=== PATIENT | male | born 1945 | race Caucasian/White ===

== ENCOUNTER 2020-08-29 14:18 | Inpatient (IN) ==
[2020-08-29 14:46] LABS: Hematocrit 18.8 VOL% (42.0-52.0); Hemoglobin 6.6 GM/DL (14.0-18.0); Immature Granulocytes % 1.9 %; Immature Granulocytes Absolute 0.04 #; Lymphocytes # 1.2 10*3/uL (1.4-4.0); Lymphocytes % 58.3 % (21.2-54.2); Mean Corpuscular HGB Conc 35.1 GM/DL (32-36); Mean Corpuscular Volume 94.9 FL (87-102); Mean Platelet Volume 10.7 FL (9.6-12.0); Monocytes % 19.9 % (1.7-12.7); NRBC # 0.02 10*3/uL; Neutrophils % 19.9 % (38.7-73.9); Platelet Count 113 T/CUMM (130-400); Red Blood Count 1.98 MC/CUMM (3.8-5.5); Red Cell Distribution Width 16.8 % (9.3-17.3); White Blood Count 2.1 T/CUMM (4-12)
[2020-08-29 15:03] LABS: Albumin 2.9 G/DL (3.4-5.0); Bilirubin,Total 0.8 MG/DL (0.2-1.0); Osmolality,Calculated 280.7 MOS/KG (273-304); Total Protein 5.6 G/DL (6.4-8.3)
[2020-08-29 15:24] LABS: INR 1.3; PT Patient Result 13.5 SECS (9.8-11.9); Partial Thromboplastin Time 38.5 SECS (23.9-33.8)
[2020-08-29] MEDS ORDERED: DEXTROSE 50% 25 GM/50 ML VIAL IV PRN (15:39)
[2020-08-29] MEDS ORDERED: GLUCAGON 1 MG VIAL IM PRN (15:39)
[2020-08-29 15:46] LABS: Atypical Lymphocytes Few; Band Neutrophils 1 % (0-10); Lymphocytes 64 % (20-55); Platelet Estimate Adequate; Segmented Neutrophils 24 % (50-85); Total Cells Counted 100
[2020-08-29 15:47] LABS: Burr Cells Few; Poikilocytosis Few
[2020-08-29 15:50] LABS: % Iron Saturation 102.8 % (18-50); Ferritin 3334.5 ng/ml (26-388)
[2020-08-29] MEDS ORDERED: diphenhydrAMINE 50 MG/1 ML VIAL IV PRN (15:53)
[2020-08-29] MEDS ORDERED: FUROSEMIDE 20 MG/2 ML VIAL IV PRN (15:53)
[2020-08-29] MEDS ORDERED: SODIUM CHLORIDE 0.9% 1,000 ML IV PRN (15:53)
[2020-08-29] MEDS ORDERED: ACETAMINOPHEN 325 MG TABLET PO PRN (15:53)
[2020-08-29 16:23] LABS: Thyroid Stimulating Hormone 3.75 uIU/ml (0.358-3.74)
[2020-08-29 16:57] LABS: Immature Granulocytes % 2.3 %; Immature Granulocytes Absolute 0.04 #; Lymphocytes % 56.1 % (21.2-54.2); Mean Corpuscular HGB Conc 35.1 GM/DL (32-36); Mean Corpuscular Volume 95.5 FL (87-102); Mean Platelet Volume 10.6 FL (9.6-12.0); Monocytes % 18.1 % (1.7-12.7); Neutrophils % 23.5 % (38.7-73.9); Platelet Count 99 T/CUMM (130-400); Red Blood Count 1.79 MC/CUMM (3.8-5.5); Red Cell Distribution Width 16.9 % (9.3-17.3); White Blood Count 1.7 T/CUMM (4-12)
[2020-08-29 17:04] LABS: Hematocrit 17.1 VOL% (42.0-52.0)
[2020-08-29 17:18] LABS: Folate > 24.0 NG/ML (5.4-24.0); Vitamin B12 591 PG/ML (211-911)
[2020-08-29 17:58] LABS: HIV Antigen/Antibody Result Nonreactive (Nonreactive)
[2020-08-29 18:03] LABS: Anisocytosis 1+; Band Neutrophils 3 % (0-10); Elliptocytes Few; Lymphocytes 46 % (20-55); Macrocytosis 1+; Metamyelocytes 2 %; Microcytosis 1+; Nucleated Red Blood Cells 2 (0-5); Platelet Estimate Decreased; Poikilocytosis 1+; Schistocytes Slight; Segmented Neutrophils 34 % (50-85); Total Cells Counted 100
[2020-08-29 18:04] LABS: Tear Drop Cells Slight
[2020-08-29 18:10] LABS: Hepatitis B Core IgM Quant 0.07 Index; Hepatitis B Surface Ag Quant < 0.10 Index; Hepatitis B Surface Ag Result Negative (Negative); Hepatitis C Virus Ab Quant 0.17 Index; Hepatitis C Virus Ab Result Negative (Negative)
[2020-08-29] MEDS ORDERED: INFLUENZA VIRUS VACCINE 0.5 ML SYRINGE IM ONE (19:26)
[2020-08-29] MEDS: FUROSEMIDE 40 MG/4 ML VIAL IV SCH (20:23)
[2020-08-30 03:16] LABS: Hematocrit 19.7 VOL% (42.0-52.0); Hemoglobin 6.9 GM/DL (14.0-18.0)
[2020-08-30 06:04] LABS: Hematocrit 19.2 VOL% (42.0-52.0); Hemoglobin 6.8 GM/DL (14.0-18.0); Immature Granulocytes Absolute 0.03 #; Lymphocytes # 0.8 10*3/uL (1.4-4.0); Lymphocytes % 52.4 % (21.2-54.2); Mean Corpuscular HGB Conc 35.4 GM/DL (32-36); Mean Corpuscular Volume 93.2 FL (87-102); Mean Platelet Volume 11.2 FL (9.6-12.0); Monocytes % 27.9 % (1.7-12.7); Neutrophils % 17.7 % (38.7-73.9); Red Blood Count 2.06 MC/CUMM (3.8-5.5); Red Cell Distribution Width 16.6 % (9.3-17.3); White Blood Count 1.5 T/CUMM (4-12)
[2020-08-30 06:07] LABS: Platelet Count 89 T/CUMM (130-400)
[2020-08-30] MEDS ORDERED: SODIUM CHLORIDE 0.9% 1,000 ML IV PRN (06:23)
[2020-08-30 06:25] LABS: Albumin 2.7 G/DL (3.4-5.0); Bilirubin,Total 0.7 MG/DL (0.2-1.0); Calcium 8.4 MG/DL (8.5-10.1); Osmolality,Calculated 281.5 MOS/KG (273-304)
[2020-08-30 06:33] LABS: Band Neutrophils 1 % (0-10); Lymphocytes 55 % (20-55); Segmented Neutrophils 28 % (50-85); Total Cells Counted 100
[2020-08-30 06:34] LABS: Hypochromasia 1+
[2020-08-30 06:35] LABS: Anisocytosis 1+; Microcytosis 1+; Tear Drop Cells Slight
[2020-08-30 06:37] LABS: Atypical Lymphocytes Few; Elliptocytes Few; Platelet Estimate Decreased; Poikilocytosis 1+
[2020-08-30] MEDS: FUROSEMIDE 40 MG/4 ML VIAL IV SCH ×2 (09:38→21:18)
[2020-08-30 18:18] LABS: Hematocrit 23.6 VOL% (42.0-52.0)
[2020-08-30 18:19] LABS: Hemoglobin 8.2 GM/DL (14.0-18.0)
[2020-08-31 06:16] LABS: Hematocrit 23.7 VOL% (42.0-52.0); Hemoglobin 8.3 GM/DL (14.0-18.0); Immature Granulocytes % 1.8 %; Immature Granulocytes Absolute 0.03 #; Lymphocytes # 0.9 10*3/uL (1.4-4.0); Lymphocytes % 56.4 % (21.2-54.2); Mean Corpuscular Volume 91.2 FL (87-102); Mean Platelet Volume 10.8 FL (9.6-12.0); Monocytes % 28.2 % (1.7-12.7); Neutrophils % 13.6 % (38.7-73.9); Red Cell Distribution Width 16.6 % (9.3-17.3); White Blood Count 1.6 T/CUMM (4-12)
[2020-08-31 06:17] LABS: Platelet Count 89 T/CUMM (130-400)
[2020-08-31 06:32] LABS: Albumin 2.5 G/DL (3.4-5.0); Bilirubin,Total 1.7 MG/DL (0.2-1.0); Calcium 8.2 MG/DL (8.5-10.1); Osmolality,Calculated 285.3 MOS/KG (273-304); Total Protein 4.9 G/DL (6.4-8.3)
[2020-08-31 06:49] LABS: Hypochromasia 1+; Lymphocytes 61 % (20-55); Microcytosis 1+; Ovalocytes Slight; Platelet Estimate Decreased; Segmented Neutrophils 19 % (50-85); Total Cells Counted 100
[2020-08-31 06:50] LABS: Atypical Lymphocytes Few
[2020-08-31] MEDS ORDERED: HEPARIN 5,000 UNIT/1 ML VIAL ONE (09:54)
[2020-08-31] MEDS ORDERED: HEPARIN 1,000 UNIT/1 ML VIAL ONE (10:31)
[2020-08-31] MEDS: FUROSEMIDE 40 MG/4 ML VIAL IV SCH ×2 (11:13→21:46)
[2020-08-31] MEDS: GABAPENTIN 300 MG CAPSULE PO SCH ×2 (18:08→21:45)
[2020-08-31] MEDS: METHOCARBAMOL 500 MG TABLET PO PRN (21:46)
[2020-09-01 05:42] LABS: Hematocrit 24.2 VOL% (42.0-52.0); Hemoglobin 8.3 GM/DL (14.0-18.0); Immature Granulocytes % 3.9 %; Immature Granulocytes Absolute 0.06 #; Lymphocytes # 0.8 10*3/uL (1.4-4.0); Lymphocytes % 54.5 % (21.2-54.2); Mean Corpuscular HGB Conc 34.3 GM/DL (32-36); Mean Corpuscular Volume 91.3 FL (87-102); Mean Platelet Volume 11.1 FL (9.6-12.0); Monocytes % 30.5 % (1.7-12.7); Neutrophils % 11.1 % (38.7-73.9); Platelet Count 96 T/CUMM (130-400); Red Blood Count 2.65 MC/CUMM (3.8-5.5); Red Cell Distribution Width 16.3 % (9.3-17.3); White Blood Count 1.5 T/CUMM (4-12)
[2020-09-01 05:57] LABS: INR 1.1; PT Patient Result 11.9 SECS (9.8-11.9); Partial Thromboplastin Time 34.5 SECS (23.9-33.8)
[2020-09-01 06:05] LABS: Calcium 8.1 MG/DL (8.5-10.1); Osmolality,Calculated 281.5 MOS/KG (273-304)
[2020-09-01 06:10] LABS: Albumin 2.7 G/DL (3.4-5.0); Bilirubin,Direct 0.23 MG/DL (0.0-0.20); Bilirubin,Indirect 1.4 MG/DL (0.0-1.0); Bilirubin,Total 1.6 MG/DL (0.2-1.0)
[2020-09-01 06:11] LABS: Atypical Lymphocytes Few; Hypochromasia 1+; Lymphocytes 64 % (20-55); Microcytosis 1+; Ovalocytes Slight; Platelet Estimate Decreased; Segmented Neutrophils 12 % (50-85); Total Cells Counted 100
[2020-09-01] MEDS ORDERED: POTASSIUM CHLORIDE 20 MEQ TABLET PO ONE (09:24)
[2020-09-01] MEDS: GABAPENTIN 300 MG CAPSULE PO SCH ×3 (11:30→21:24)
[2020-09-01] MEDS: FUROSEMIDE 40 MG/4 ML VIAL IV SCH ×2 (11:32→21:24)
[2020-09-02 06:02] LABS: Calcium 8.2 MG/DL (8.5-10.1); Osmolality,Calculated 279.7 MOS/KG (273-304)
[2020-09-02 06:09] LABS: Albumin 2.6 G/DL (3.4-5.0); Bilirubin,Direct 0.23 MG/DL (0.0-0.20); Bilirubin,Indirect 1.3 MG/DL (0.0-1.0); Bilirubin,Total 1.5 MG/DL (0.2-1.0); Total Protein 5.1 G/DL (6.4-8.3)
[2020-09-02 06:10] LABS: Hematocrit 24.6 VOL% (42.0-52.0); Hemoglobin 8.4 GM/DL (14.0-18.0); Immature Granulocytes % 2.7 %; Immature Granulocytes Absolute 0.04 #; Lymphocytes # 0.9 10*3/uL (1.4-4.0); Lymphocytes % 57.7 % (21.2-54.2); Mean Corpuscular HGB Conc 34.1 GM/DL (32-36); Mean Corpuscular Volume 91.8 FL (87-102); Mean Platelet Volume 11.4 FL (9.6-12.0); Monocytes % 27.5 % (1.7-12.7); NRBC # 0.02 10*3/uL; Neutrophils % 12.1 % (38.7-73.9); Platelet Count 87 T/CUMM (130-400); Red Blood Count 2.68 MC/CUMM (3.8-5.5); White Blood Count 1.5 T/CUMM (4-12)
[2020-09-02 07:56] LABS: Lymphocytes 57 % (20-55); Segmented Neutrophils 17 % (50-85); Total Cells Counted 100
[2020-09-02 07:57] LABS: Ovalocytes Few; Platelet Estimate Adequate; Polychromasia Slight; Tear Drop Cells Slight
[2020-09-02] MEDS: FUROSEMIDE 40 MG/4 ML VIAL IV SCH (08:15)
[2020-09-02] MEDS: GABAPENTIN 300 MG CAPSULE PO SCH ×3 (08:15→20:34)
[2020-09-02] MEDS ORDERED: MAGNESIUM HYDROXIDE SUSP 30 ML UDCUP PO ONE (11:20)
[2020-09-02] MEDS: METOPROLOL SUCCINATE XL 25 MG TABLET PO SCH (12:13)
[2020-09-02] MEDS: DOCUSATE SODIUM 100 MG CAPSULE PO SCH ×2 (12:14→20:34)
[2020-09-02] MEDS: FUROSEMIDE 40 MG TABLET PO SCH (16:22)
[2020-09-03 07:17] LABS: Albumin 2.6 G/DL (3.4-5.0); Bilirubin,Direct 0.25 MG/DL (0.0-0.20); Bilirubin,Indirect 1.5 MG/DL (0.0-1.0); Bilirubin,Total 1.7 MG/DL (0.2-1.0)
[2020-09-03] MEDS: GABAPENTIN 300 MG CAPSULE PO SCH ×3 (09:55→21:05)
[2020-09-03] MEDS: FUROSEMIDE 40 MG TABLET PO SCH ×2 (09:55→17:04)
[2020-09-03] MEDS: POLYETHYLENE GLYCOL POWDER 17 GM PACK PO SCH (09:55)
[2020-09-03] MEDS: METOPROLOL SUCCINATE XL 25 MG TABLET PO SCH (09:55)
[2020-09-03] MEDS: DOCUSATE SODIUM 100 MG CAPSULE PO SCH ×2 (09:55→21:05)
[2020-09-03] MEDS: METHOCARBAMOL 500 MG TABLET PO PRN (21:05)
[2020-09-04 06:01] LABS: Hematocrit 23.3 VOL% (42.0-52.0); Hemoglobin 8.1 GM/DL (14.0-18.0); Immature Granulocytes % 3.7 %; Immature Granulocytes Absolute 0.06 #; Lymphocytes # 0.7 10*3/uL (1.4-4.0); Lymphocytes % 44.1 % (21.2-54.2); Mean Corpuscular HGB Conc 34.8 GM/DL (32-36); Mean Corpuscular Volume 91.7 FL (87-102); Mean Platelet Volume 10.5 FL (9.6-12.0); Monocytes % 29.8 % (1.7-12.7); Neutrophils % 22.4 % (38.7-73.9); Platelet Count 98 T/CUMM (130-400); Red Blood Count 2.54 MC/CUMM (3.8-5.5); Red Cell Distribution Width 15.9 % (9.3-17.3); White Blood Count 1.6 T/CUMM (4-12)
[2020-09-04 06:28] LABS: Albumin 2.5 G/DL (3.4-5.0); Bilirubin,Direct 0.28 MG/DL (0.0-0.20); Bilirubin,Indirect 0.7 MG/DL (0.0-1.0); Total Protein 4.9 G/DL (6.4-8.3)
[2020-09-04 06:32] LABS: Calcium 8.1 MG/DL (8.5-10.1)
[2020-09-04 06:33] LABS: Lymphocytes 37 % (20-55); Platelet Estimate Decreased; Segmented Neutrophils 31 % (50-85); Total Cells Counted 100
[2020-09-04 06:34] LABS: Atypical Lymphocytes Few; Hypochromasia 1+; Microcytosis 1+; Ovalocytes Slight
[2020-09-04] MEDS: METHOCARBAMOL 500 MG TABLET PO PRN ×2 (08:25→21:12)
[2020-09-04] MEDS: POLYETHYLENE GLYCOL POWDER 17 GM PACK PO SCH (08:25)
[2020-09-04] MEDS: GABAPENTIN 300 MG CAPSULE PO SCH ×3 (08:26→21:12)
[2020-09-04] MEDS: FUROSEMIDE 40 MG TABLET PO SCH (08:26)
[2020-09-04] MEDS: DOCUSATE SODIUM 100 MG CAPSULE PO SCH ×2 (08:26→21:12)
[2020-09-04] MEDS: METOPROLOL SUCCINATE XL 25 MG TABLET PO SCH (10:11)
[2020-09-04] MEDS ORDERED: SODIUM CHLORIDE 0.9% 1,000 ML IV PRN (15:56)
[2020-09-05 06:46] LABS: Hematocrit 25.8 VOL% (42.0-52.0); Hemoglobin 8.9 GM/DL (14.0-18.0); Immature Granulocytes % 1.9 %; Immature Granulocytes Absolute 0.03 #; Lymphocytes # 0.6 10*3/uL (1.4-4.0); Lymphocytes % 37.4 % (21.2-54.2); Mean Corpuscular HGB Conc 34.5 GM/DL (32-36); Mean Corpuscular Volume 90.5 FL (87-102); Mean Platelet Volume 11.3 FL (9.6-12.0); Neutrophils % 31.7 % (38.7-73.9); Platelet Count 101 T/CUMM (130-400); Red Blood Count 2.85 MC/CUMM (3.8-5.5); Red Cell Distribution Width 15.4 % (9.3-17.3); White Blood Count 1.6 T/CUMM (4-12)
[2020-09-05 07:12] LABS: Atypical Lymphocytes Few; Band Neutrophils 1 % (0-10); Hypochromasia 1+; Lymphocytes 33 % (20-55); Segmented Neutrophils 40 % (50-85); Total Cells Counted 100
[2020-09-05 07:13] LABS: Microcytosis 1+; Ovalocytes Slight
[2020-09-05 07:14] LABS: Albumin 2.6 G/DL (3.4-5.0); Bilirubin,Direct 0.35 MG/DL (0.0-0.20); Bilirubin,Indirect 1.4 MG/DL (0.0-1.0); Bilirubin,Total 1.7 MG/DL (0.2-1.0); Total Protein 5.1 G/DL (6.4-8.3)
[2020-09-05 07:14] LABS: Platelet Estimate Decreased
[2020-09-05 08:11] LABS: Calcium 7.8 MG/DL (8.5-10.1); Osmolality,Calculated 276.2 MOS/KG (273-304)
[2020-09-05] MEDS ORDERED: FUROSEMIDE 40 MG TABLET PO SCH (09:00)
[2020-09-05] MEDS: METHOCARBAMOL 500 MG TABLET PO PRN ×2 (09:08→21:18)
[2020-09-05] MEDS: POLYETHYLENE GLYCOL POWDER 17 GM PACK PO SCH (09:08)
[2020-09-05] MEDS: GABAPENTIN 300 MG CAPSULE PO SCH ×3 (09:08→21:18)
[2020-09-05] MEDS: DOCUSATE SODIUM 100 MG CAPSULE PO SCH ×2 (09:08→21:18)
[2020-09-05] MEDS: METOPROLOL SUCCINATE XL 25 MG TABLET PO SCH (09:08)
[2020-09-06 06:18] LABS: Hematocrit 26.6 VOL% (42.0-52.0); Hemoglobin 9.3 GM/DL (14.0-18.0); Immature Granulocytes % 3.4 %; Immature Granulocytes Absolute 0.06 #; Lymphocytes # 0.7 10*3/uL (1.4-4.0); Lymphocytes % 39.1 % (21.2-54.2); Mean Corpuscular Volume 91.1 FL (87-102); Mean Platelet Volume 11.4 FL (9.6-12.0); Monocytes % 28.2 % (1.7-12.7); Neutrophils % 29.3 % (38.7-73.9); Platelet Count 101 T/CUMM (130-400); Red Blood Count 2.92 MC/CUMM (3.8-5.5); Red Cell Distribution Width 15.4 % (9.3-17.3); White Blood Count 1.7 T/CUMM (4-12)
[2020-09-06 06:38] LABS: Calcium 8.1 MG/DL (8.5-10.1); Osmolality,Calculated 277.1 MOS/KG (273-304)
[2020-09-06 06:52] LABS: Hypochromasia 1+; Lymphocytes 39 % (20-55); Ovalocytes Slight; Platelet Estimate Decreased; Segmented Neutrophils 43 % (50-85); Total Cells Counted 100
[2020-09-06 06:53] LABS: Microcytosis 1+
[2020-09-06 06:55] LABS: Atypical Lymphocytes Few
[2020-09-06] MEDS: DOCUSATE SODIUM 100 MG CAPSULE PO SCH (08:08)
[2020-09-06] MEDS: METOPROLOL SUCCINATE XL 25 MG TABLET PO SCH (08:08)
[2020-09-06] MEDS: POLYETHYLENE GLYCOL POWDER 17 GM PACK PO SCH (08:08)
[2020-09-06] MEDS: GABAPENTIN 300 MG CAPSULE PO SCH ×2 (08:08→15:19)
[2020-09-06 12:08] VITALS: BP 112/68
== END 2020-09-06 15:00 | disposition home or self-care (01) | DRG 307 ==
LOC: N.EDINP 14:18 → N.ED 14:18 → SUATTDRO 15:39 → N.EDINP 18:13 → N.4E 18:20 → SUATTDRO 09-01 09:15
PROVIDERS: ADMIT Internal Medicine Critical Care Medicine; ATTEND Emergency Medicine

== ENCOUNTER 2020-09-29 12:10 | Inpatient (IN) ==
[2020-09-29] MEDS ORDERED: SODIUM CHLORIDE 0.9% 1,000 ML IV STA (12:30)
[2020-09-29 13:11] LABS: Basophils % 0.1 % (0.0-0.8); Eosinophils % 0.5 % (0.00-10.9); Immature Granulocytes % 1.5 %; Immature Granulocytes Absolute 0.12 #; Lymphocytes # 0.2 10*3/uL (1.4-4.0); Lymphocytes % 1.9 % (21.2-54.2); Mean Corpuscular HGB Conc 32.7 GM/DL (32-36); Mean Platelet Volume 11.5 FL (9.6-12.0); Platelet Count 79 T/CUMM (130-400); Red Blood Count 1.53 MC/CUMM (3.8-5.5); Red Cell Distribution Width 21.5 % (9.3-17.3)
[2020-09-29 13:17] LABS: Hemoglobin 4.9 GM/DL (14.0-18.0)
[2020-09-29] MEDS ORDERED: SODIUM CHLORIDE 0.9% 1,000 ML IV PRN ×3 (13:23→15:30)
[2020-09-29 13:26] LABS: Bilirubin,Urine Negative (Negative); Blood, Urine Large mg/dL (Negative); Glucose,Urine (UA) Negative (Negative); Ketones,Urine Negative (Negative); Nitrite,Urine Negative (Negative); Protein,Urine Negative; RBC,Urine 104 /HPF (0-4); Urine Appearance CLEAR (Clear); Urine Color Yellow (Yellow); Urine Specific Gravity 1.009 (1.001-1.035); Urine Urobilinogen < 2.0 EU/DL (0.2-1.0); WBC,Urine 17 /HPF (0-6)
[2020-09-29 13:30] LABS: INR 1.2; PT Patient Result 13.1 SECS (9.8-11.9)
[2020-09-29 13:43] LABS: Eosinophils 1 % (0-10); Lymphocytes 3 % (20-55); Segmented Neutrophils 89 % (50-85); Total Cells Counted 100
[2020-09-29 13:45] LABS: Anisocytosis 2+; Microcytosis 1+; Ovalocytes Few; Polychromasia Few
[2020-09-29 13:46] LABS: Macrocytosis 1+; Platelet Estimate Decreased
[2020-09-29 13:52] LABS: Albumin 3.2 G/DL (3.4-5.0); Bilirubin,Total 0.8 MG/DL (0.2-1.0); Osmolality,Calculated 312.3 MOS/KG (273-304); Total Protein 5.3 G/DL (6.4-8.3)
[2020-09-29 13:56] LABS: Calcium 5.2 MG/DL (8.5-10.1)
[2020-09-29] MEDS ORDERED: CALCIUM GLUCONATE 1,000 MG in SODIUM CHLORIDE 0.9% 100 ML IV ONE ×2 (14:38→15:32)
[2020-09-29] MEDS ORDERED: CALCIUM GLUCONATE 1,000 MG/10 ML VIAL IV ONE (14:47)
[2020-09-29] MEDS ORDERED: SODIUM CHLORIDE 0.9% 100 ML IV ONE (14:47)
[2020-09-29] MEDS ORDERED: ONDANSETRON 4 MG/2 ML VIAL IV PRN (15:17)
[2020-09-29] MEDS ORDERED: ALBUTEROL 2.5 MG/3 ML NEB RESP TX PRN (15:17)
[2020-09-29] MEDS ORDERED: MORPHINE 4 MG/1 ML VIAL IV PRN (15:17)
[2020-09-29] MEDS ORDERED: NICOTINE 21 MG/24 HR PATCH TRANSDERM PRN (15:17)
[2020-09-29] MEDS ORDERED: ACETAMINOPHEN 325 MG TABLET PO PRN (15:17)
[2020-09-29] MEDS ORDERED: DEXTROSE 50% 25 GM/50 ML VIAL IV PRN (15:17)
[2020-09-29] MEDS ORDERED: GLUCAGON 1 MG VIAL IM PRN (15:17)
[2020-09-29] MEDS ORDERED: SODIUM CHLORIDE 0.9% 1,000 ML IV SCH (15:30)
[2020-09-29 16:10] LABS: % Iron Saturation 53.1 % (18-50); Ferritin 1512.8 ng/ml (26-388)
[2020-09-29 16:18] LABS: Folate 20.8 NG/ML (5.4-24.0); Vitamin B12 > 2000 PG/ML (211-911)
[2020-09-29 17:46] LABS: Basophils % 0.2 % (0.0-0.8); Eosinophils % 0.4 % (0.00-10.9); Immature Granulocytes % 1.7 %; Immature Granulocytes Absolute 0.16 #; Lymphocytes # 0.2 10*3/uL (1.4-4.0); Lymphocytes % 1.9 % (21.2-54.2); Mean Corpuscular HGB Conc 33.8 GM/DL (32-36); Mean Corpuscular Volume 96.9 FL (87-102); Mean Platelet Volume 11.1 FL (9.6-12.0); Neutrophils % 89.8 % (38.7-73.9); Platelet Count 76 T/CUMM (130-400); Red Blood Count 1.59 MC/CUMM (3.8-5.5); Red Cell Distribution Width 21.9 % (9.3-17.3); White Blood Count 9.3 T/CUMM (4-12)
[2020-09-29 17:49] LABS: Hemoglobin 5.2 GM/DL (14.0-18.0)
[2020-09-29 17:50] LABS: Hematocrit 15.4 VOL% (42.0-52.0)
[2020-09-29 18:30] LABS: Bilirubin,Total 0.8 MG/DL (0.2-1.0); Total Protein 5.6 G/DL (6.4-8.3)
[2020-09-29 18:33] LABS: Calcium 5.2 MG/DL (8.5-10.1)
[2020-09-29 18:34] LABS: Eosinophils 1 % (0-10); Lymphocytes 3 % (20-55); Segmented Neutrophils 94 % (50-85); Total Cells Counted 100
[2020-09-29 18:35] LABS: Parathyroid Hormone Intact 260.8 PG/ML (18.4-80.1); Platelet Estimate Decreased
[2020-09-29 18:36] LABS: Anisocytosis 2+; Macrocytosis 1+; Microcytosis 1+; Ovalocytes Few; Polychromasia Few
[2020-09-29] MEDS ORDERED: allopurinoL 300 MG TABLET PO SCH (18:43)
[2020-09-29] MEDS: allopurinoL 300 MG TABLET PO SCH (18:52)
[2020-09-29 18:54] LABS: Sedimentation Rate-Westergren 102 MM/HR (0-20)
[2020-09-29] MEDS ORDERED: DEXTROSE 5% 1,000 ML IV SCH (19:30)
[2020-09-29] MEDS: SODIUM BICARB INJ 50 MEQ in DEXTROSE 5% 1,000 ML IV SCH (20:01)
[2020-09-29] MEDS ORDERED: CALCIUM GLUCONATE 2,000 MG in SODIUM CHLORIDE 0.9% 100 ML IV ONE (20:34)
[2020-09-29] MEDS: PANTOPRAZOLE 40 MG VIAL IV SCH (20:49)
[2020-09-29] MEDS: CALCIUM (CARBONATE) 500 MG TABLET PO SCH (20:49)
[2020-09-30 01:08] LABS: Basophils % 0.2 % (0.0-0.8); Eosinophils % 0.5 % (0.00-10.9); Immature Granulocytes % 1.6 %; Immature Granulocytes Absolute 0.14 #; Lymphocytes # 0.2 10*3/uL (1.4-4.0); Mean Corpuscular HGB Conc 32.7 GM/DL (32-36); Mean Corpuscular Volume 94.2 FL (87-102); Mean Platelet Volume 10.1 FL (9.6-12.0); Monocytes % 6.5 % (1.7-12.7); Neutrophils % 89.2 % (38.7-73.9); Red Cell Distribution Width 19.5 % (9.3-17.3); White Blood Count 8.6 T/CUMM (4-12)
[2020-09-30 01:09] LABS: Hematocrit 22.6 VOL% (42.0-52.0); Hemoglobin 7.4 GM/DL (14.0-18.0)
[2020-09-30 01:11] LABS: Platelet Count 70 T/CUMM (130-400)
[2020-09-30 01:31] LABS: Anisocytosis 1+; Band Neutrophils 3 % (0-10); Lymphocytes 3 % (20-55); Macrocytosis 1+; Metamyelocytes 1 %; Platelet Estimate Decreased; Segmented Neutrophils 87 % (50-85); Total Cells Counted 100
[2020-09-30] MEDS: SODIUM BICARB INJ 50 MEQ in DEXTROSE 5% 1,000 ML IV SCH ×3 (02:00→12:08)
[2020-09-30 07:02] LABS: Basophils % 0.4 % (0.0-0.8); Eosinophils # 0.1 10*3/uL (0.0-0.87); Eosinophils % 0.6 % (0.00-10.9); Hematocrit 23.1 VOL% (42.0-52.0); Hemoglobin 7.6 GM/DL (14.0-18.0); Immature Granulocytes % 0.8 %; Immature Granulocytes Absolute 0.07 #; Lymphocytes # 0.1 10*3/uL (1.4-4.0); Lymphocytes % 1.6 % (21.2-54.2); Mean Corpuscular HGB Conc 32.9 GM/DL (32-36); Mean Corpuscular Volume 92.8 FL (87-102); Mean Platelet Volume 10.8 FL (9.6-12.0); Monocytes % 5.2 % (1.7-12.7); Neutrophils % 91.4 % (38.7-73.9); Platelet Count 65 T/CUMM (130-400); Red Blood Count 2.49 MC/CUMM (3.8-5.5); Red Cell Distribution Width 19.8 % (9.3-17.3); White Blood Count 8.3 T/CUMM (4-12)
[2020-09-30 07:22] LABS: Albumin 2.6 G/DL (3.4-5.0); Bilirubin,Total 0.7 MG/DL (0.2-1.0); Osmolality,Calculated 300.7 MOS/KG (273-304)
[2020-09-30 07:23] LABS: Calcium 5.2 MG/DL (8.5-10.1)
[2020-09-30] MEDS ORDERED: SODIUM CHLORIDE 0.9% IV ONE (08:30)
[2020-09-30] MEDS ORDERED: RASBURICASE IV ONE (08:30)
[2020-09-30] MEDS: BISACODYL 5 MG TABLET PO SCH (08:46)
[2020-09-30] MEDS: allopurinoL 300 MG TABLET PO SCH ×2 (08:47→21:18)
[2020-09-30] MEDS: PANTOPRAZOLE 40 MG VIAL IV SCH ×2 (08:47→21:18)
[2020-09-30] MEDS: CALCIUM (CARBONATE) 500 MG TABLET PO SCH ×2 (08:47→21:18)
[2020-09-30 10:42] LABS: Band Neutrophils 3 % (0-10); Eosinophils 1 % (0-10); Hypochromasia Slight; Lymphocytes 3 % (20-55); Microcytosis Slight; Platelet Estimate Decreased; Polychromasia Slight; Schistocytes Slight; Segmented Neutrophils 89 % (50-85); Total Cells Counted 100
[2020-09-30 10:54] LABS: Hemoglobin 7.4 GM/DL (14.0-18.0)
[2020-09-30] MEDS: CALCIUM ACETATE 667 MG CAPSULE PO SCH (16:07)
[2020-09-30 17:11] LABS: Hematocrit 22.1 VOL% (42.0-52.0); Hemoglobin 7.3 GM/DL (14.0-18.0)
[2020-09-30] MEDS: SODIUM BICARB INJ 50 MEQ in SODIUM CHLORIDE 0.45% 1,000 ML IV SCH ×2 (18:06→23:52)
[2020-09-30 20:13] LABS: Basophils % 0.1 % (0.0-0.8); Eosinophils % 0.4 % (0.00-10.9); Hematocrit 21.4 VOL% (42.0-52.0); Hemoglobin 7.2 GM/DL (14.0-18.0); Immature Granulocytes % 1.9 %; Immature Granulocytes Absolute 0.14 #; Lymphocytes # 0.1 10*3/uL (1.4-4.0); Lymphocytes % 1.7 % (21.2-54.2); Mean Corpuscular HGB Conc 33.6 GM/DL (32-36); Mean Corpuscular Volume 91.5 FL (87-102); Mean Platelet Volume 10.5 FL (9.6-12.0); Monocytes % 5.4 % (1.7-12.7); Neutrophils % 90.5 % (38.7-73.9); Platelet Count 51 T/CUMM (130-400); Red Blood Count 2.34 MC/CUMM (3.8-5.5); Red Cell Distribution Width 19.9 % (9.3-17.3); White Blood Count 7.2 T/CUMM (4-12)
[2020-09-30 21:35] LABS: Band Neutrophils 6 % (0-10); Lymphocytes 2 % (20-55); Platelet Estimate Decreased; Segmented Neutrophils 91 % (50-85); Total Cells Counted 100
[2020-10-01 01:41] LABS: Basophils % 0.3 % (0.0-0.8); Eosinophils % 0.5 % (0.00-10.9); Hematocrit 22.4 VOL% (42.0-52.0); Hemoglobin 7.6 GM/DL (14.0-18.0); Immature Granulocytes % 0.9 %; Immature Granulocytes Absolute 0.06 #; Lymphocytes # 0.2 10*3/uL (1.4-4.0); Lymphocytes % 2.3 % (21.2-54.2); Mean Corpuscular HGB Conc 33.9 GM/DL (32-36); Mean Corpuscular Volume 90.7 FL (87-102); Mean Platelet Volume 9.9 FL (9.6-12.0); Monocytes % 5.2 % (1.7-12.7); Neutrophils % 90.8 % (38.7-73.9); Platelet Count 65 T/CUMM (130-400); Red Blood Count 2.47 MC/CUMM (3.8-5.5); Red Cell Distribution Width 20.2 % (9.3-17.3); White Blood Count 6.5 T/CUMM (4-12)
[2020-10-01 02:54] LABS: Lymphocytes 2 % (20-55); Microcytosis Slight; Ovalocytes Few; Platelet Estimate Decreased; Segmented Neutrophils 95 % (50-85); Total Cells Counted 100
[2020-10-01 02:56] LABS: Polychromasia Slight
[2020-10-01 02:57] LABS: Anisocytosis 1+
[2020-10-01 04:30] LABS: Basophils % 0.3 % (0.0-0.8); Eosinophils % 0.5 % (0.00-10.9); Hematocrit 22.6 VOL% (42.0-52.0); Hemoglobin 7.6 GM/DL (14.0-18.0); Immature Granulocytes % 1.1 %; Immature Granulocytes Absolute 0.07 #; Lymphocytes # 0.1 10*3/uL (1.4-4.0); Lymphocytes % 1.3 % (21.2-54.2); Mean Corpuscular HGB Conc 33.6 GM/DL (32-36); Mean Corpuscular Volume 91.1 FL (87-102); Mean Platelet Volume 11.6 FL (9.6-12.0); Monocytes % 4.9 % (1.7-12.7); Neutrophils % 91.9 % (38.7-73.9); Platelet Count 57 T/CUMM (130-400); Red Blood Count 2.48 MC/CUMM (3.8-5.5); Red Cell Distribution Width 19.7 % (9.3-17.3); White Blood Count 6.1 T/CUMM (4-12)
[2020-10-01] MEDS: SODIUM BICARB INJ 50 MEQ in SODIUM CHLORIDE 0.45% 1,000 ML IV SCH ×7 (04:34→20:52)
[2020-10-01 05:18] LABS: Albumin 2.4 G/DL (3.4-5.0); Osmolality,Calculated 288.8 MOS/KG (273-304); Total Protein 4.7 G/DL (6.4-8.3)
[2020-10-01 05:33] LABS: Calcium 5.4 MG/DL (8.5-10.1)
[2020-10-01 07:15] LABS: Band Neutrophils 1 % (0-10); Hypochromasia Slight; Lymphocytes 3 % (20-55); Platelet Estimate Decreased; Polychromasia Slight; Segmented Neutrophils 92 % (50-85); Spherocytes 1+; Total Cells Counted 100
[2020-10-01 08:34] LABS: Basophils % 0.4 % (0.0-0.8); Eosinophils % 0.5 % (0.00-10.9); Hematocrit 21.5 VOL% (42.0-52.0); Hemoglobin 7.2 GM/DL (14.0-18.0); Immature Granulocytes % 1.8 %; Lymphocytes # 0.1 10*3/uL (1.4-4.0); Lymphocytes % 2.2 % (21.2-54.2); Mean Corpuscular HGB Conc 33.5 GM/DL (32-36); Mean Corpuscular Volume 91.5 FL (87-102); Mean Platelet Volume 11.5 FL (9.6-12.0); Monocytes % 5.8 % (1.7-12.7); Neutrophils % 89.3 % (38.7-73.9); Platelet Count 61 T/CUMM (130-400); Red Blood Count 2.35 MC/CUMM (3.8-5.5); Red Cell Distribution Width 20.2 % (9.3-17.3); White Blood Count 5.5 T/CUMM (4-12)
[2020-10-01] MEDS: PANTOPRAZOLE 40 MG VIAL IV SCH (09:19)
[2020-10-01] MEDS: BISACODYL 5 MG TABLET PO SCH (09:20)
[2020-10-01] MEDS: CALCIUM (CARBONATE) 500 MG TABLET PO SCH (09:20)
[2020-10-01] MEDS: CALCIUM ACETATE 667 MG CAPSULE PO SCH ×3 (09:20→17:53)
[2020-10-01] MEDS: allopurinoL 300 MG TABLET PO SCH ×2 (09:20→21:44)
[2020-10-01] MEDS ORDERED: POTASSIUM CHLORIDE 20 MEQ TABLET PO PRN (10:16)
[2020-10-01] MEDS ORDERED: VANCOMYCIN INJ 1,000 MG in SODIUM CHLORIDE 0.9% 250 ML IV ONE (10:56)
[2020-10-01] MEDS ORDERED: SODIUM CHLORIDE 0.9% 1,000 ML IV PRN (11:00)
[2020-10-01] MEDS: LINEZOLID INJ 600 MG in PREMIX 1 EACH IV SCH (12:20)
[2020-10-01 13:08] LABS: Band Neutrophils 4 % (0-10); Lymphocytes 1 % (20-55); Metamyelocytes 1 %; Ovalocytes Slight; Platelet Estimate Decreased; Segmented Neutrophils 89 % (50-85); Total Cells Counted 100
[2020-10-01 14:53] LABS: Basophils % 0.3 % (0.0-0.8); Eosinophils % 0.5 % (0.00-10.9); Hematocrit 27.2 VOL% (42.0-52.0); Immature Granulocytes % 1.2 %; Immature Granulocytes Absolute 0.07 #; Lymphocytes # 0.1 10*3/uL (1.4-4.0); Lymphocytes % 2.2 % (21.2-54.2); Mean Corpuscular HGB Conc 33.1 GM/DL (32-36); Mean Corpuscular Volume 93.5 FL (87-102); Monocytes % 6.4 % (1.7-12.7); Neutrophils % 89.4 % (38.7-73.9); Platelet Count 51 T/CUMM (130-400); Red Blood Count 2.91 MC/CUMM (3.8-5.5); Red Cell Distribution Width 18.5 % (9.3-17.3); White Blood Count 5.8 T/CUMM (4-12)
[2020-10-01] MEDS ORDERED: POTASSIUM CHLORIDE 20 MEQ TABLET PO SCH (21:00)
[2020-10-01] MEDS: PANTOPRAZOLE 40 MG TABLET PO SCH (21:45)
[2020-10-01 23:42] LABS: Basophils % 0.2 % (0.0-0.8); Eosinophils % 0.5 % (0.00-10.9); Hematocrit 27.7 VOL% (42.0-52.0); Hemoglobin 9.5 GM/DL (14.0-18.0); Immature Granulocytes % 1.2 %; Immature Granulocytes Absolute 0.07 #; Lymphocytes # 0.2 10*3/uL (1.4-4.0); Lymphocytes % 2.5 % (21.2-54.2); Mean Corpuscular HGB Conc 34.3 GM/DL (32-36); Mean Corpuscular Volume 91.4 FL (87-102); Mean Platelet Volume 10.8 FL (9.6-12.0); Monocytes % 5.8 % (1.7-12.7); Neutrophils % 89.8 % (38.7-73.9); Platelet Count 53 T/CUMM (130-400); Red Blood Count 3.03 MC/CUMM (3.8-5.5); Red Cell Distribution Width 18.3 % (9.3-17.3)
[2020-10-02] MEDS: LINEZOLID INJ 600 MG in PREMIX 1 EACH IV SCH ×3 (00:07→23:44)
[2020-10-02] MEDS: SODIUM BICARB INJ 50 MEQ in SODIUM CHLORIDE 0.45% 1,000 ML IV SCH ×4 (02:07→19:06)
[2020-10-02 03:43] LABS: Anisocytosis Slight; Band Neutrophils 7 % (0-10); Eosinophils 1 % (0-10); Lymphocytes 3 % (20-55); Macrocytosis Slight; Metamyelocytes 2 %; Platelet Estimate Decreased; Segmented Neutrophils 79 % (50-85); Total Cells Counted 100
[2020-10-02 04:14] LABS: Albumin 2.5 G/DL (3.4-5.0); Osmolality,Calculated 284.7 MOS/KG (273-304); Total Protein 4.6 G/DL (6.4-8.3)
[2020-10-02 04:16] LABS: Calcium 5.7 MG/DL (8.5-10.1)
[2020-10-02] MEDS ORDERED: diphenhydrAMINE CAP 25 MG CAPSULE PO ONE (04:27)
[2020-10-02] MEDS: CALCIUM ACETATE 667 MG CAPSULE PO SCH ×3 (08:28→17:09)
[2020-10-02 08:33] LABS: Hemoglobin A1 (Alkaline) 97.8 % (96.5-98.5); Hemoglobin A2 (Alkaline) 2.2 % (1.5-3.5)
[2020-10-02] MEDS ORDERED: POTASSIUM CHLORIDE 20 MEQ TABLET PO SCH (09:00)
[2020-10-02] MEDS: BISACODYL 5 MG TABLET PO SCH (09:12)
[2020-10-02] MEDS: allopurinoL 300 MG TABLET PO SCH ×2 (09:12→23:11)
[2020-10-02] MEDS: PANTOPRAZOLE 40 MG TABLET PO SCH ×2 (09:12→23:12)
[2020-10-02] MEDS ORDERED: CALCIUM GLUCONATE 2,000 MG in SODIUM CHLORIDE 0.9% 100 ML IV ONE (11:00)
[2020-10-02 11:43] LABS: Basophils % 0.2 % (0.0-0.8); Eosinophils % 0.8 % (0.00-10.9); Hematocrit 25.3 VOL% (42.0-52.0); Hemoglobin 8.6 GM/DL (14.0-18.0); Immature Granulocytes % 1.4 %; Immature Granulocytes Absolute 0.07 #; Lymphocytes # 0.1 10*3/uL (1.4-4.0); Lymphocytes % 2.3 % (21.2-54.2); Mean Platelet Volume 11.1 FL (9.6-12.0); Monocytes % 4.9 % (1.7-12.7); Neutrophils % 90.4 % (38.7-73.9); Platelet Count 45 T/CUMM (130-400); Red Blood Count 2.78 MC/CUMM (3.8-5.5); White Blood Count 5.1 T/CUMM (4-12)
[2020-10-02 12:13] LABS: Anisocytosis 2+; Band Neutrophils 10 % (0-10); Eosinophils 2 % (0-10); Lymphocytes 5 % (20-55); Macrocytosis Slight; Metamyelocytes 1 %; Platelet Estimate Decreased; Segmented Neutrophils 79 % (50-85); Total Cells Counted 100
[2020-10-02] MEDS: POTASSIUM CHLORIDE 20 MEQ TABLET PO SCH (23:12)
[2020-10-03 00:20] LABS: Basophils % 0.4 % (0.0-0.8); Eosinophils % 0.8 % (0.00-10.9); Hematocrit 29.3 VOL% (42.0-52.0); Hemoglobin 9.8 GM/DL (14.0-18.0); Immature Granulocytes % 1.3 %; Immature Granulocytes Absolute 0.07 #; Lymphocytes # 0.2 10*3/uL (1.4-4.0); Lymphocytes % 3.2 % (21.2-54.2); Mean Corpuscular HGB Conc 33.4 GM/DL (32-36); Mean Corpuscular Volume 92.4 FL (87-102); Mean Platelet Volume 11.6 FL (9.6-12.0); Monocytes % 4.9 % (1.7-12.7); Neutrophils % 89.4 % (38.7-73.9); Platelet Count 46 T/CUMM (130-400); Red Blood Count 3.17 MC/CUMM (3.8-5.5); Red Cell Distribution Width 18.2 % (9.3-17.3); White Blood Count 5.3 T/CUMM (4-12)
[2020-10-03 01:10] LABS: Anisocytosis 1+; Lymphocytes 1 % (20-55); Microcytosis Slight; Segmented Neutrophils 97 % (50-85); Total Cells Counted 100
[2020-10-03 01:12] LABS: Ovalocytes Slight; Platelet Estimate Decreased
[2020-10-03] MEDS: SODIUM BICARB INJ 50 MEQ in SODIUM CHLORIDE 0.45% 1,000 ML IV SCH ×3 (01:48→12:15)
[2020-10-03 04:34] LABS: Albumin 2.2 G/DL (3.4-5.0); Bilirubin,Total 0.8 MG/DL (0.2-1.0); Calcium 6.2 MG/DL (8.5-10.1); Osmolality,Calculated 276.8 MOS/KG (273-304); Total Protein 4.6 G/DL (6.4-8.3)
[2020-10-03] MEDS: POTASSIUM CHLORIDE 20 MEQ TABLET PO SCH ×2 (08:30→21:51)
[2020-10-03] MEDS: BISACODYL 5 MG TABLET PO SCH (08:30)
[2020-10-03] MEDS: PANTOPRAZOLE 40 MG TABLET PO SCH ×2 (08:30→21:52)
[2020-10-03] MEDS: allopurinoL 300 MG TABLET PO SCH ×2 (08:30→21:52)
[2020-10-03] MEDS: CALCIUM ACETATE 667 MG CAPSULE PO SCH ×3 (08:30→17:14)
[2020-10-03 08:55] LABS: Basophils % 0.2 % (0.0-0.8); Eosinophils # 0.1 10*3/uL (0.0-0.87); Eosinophils % 1.5 % (0.00-10.9); Hematocrit 30.6 VOL% (42.0-52.0); Hemoglobin 10.3 GM/DL (14.0-18.0); Immature Granulocytes % 1.3 %; Immature Granulocytes Absolute 0.06 #; Lymphocytes # 0.2 10*3/uL (1.4-4.0); Lymphocytes % 3.9 % (21.2-54.2); Mean Corpuscular HGB Conc 33.7 GM/DL (32-36); Mean Corpuscular Volume 92.4 FL (87-102); Mean Platelet Volume 10.9 FL (9.6-12.0); Monocytes % 4.8 % (1.7-12.7); Neutrophils % 88.3 % (38.7-73.9); Platelet Count 49 T/CUMM (130-400); Red Blood Count 3.31 MC/CUMM (3.8-5.5); Red Cell Distribution Width 18.2 % (9.3-17.3); White Blood Count 4.6 T/CUMM (4-12)
[2020-10-03 09:20] LABS: Band Neutrophils 19 % (0-10); Lymphocytes 4 % (20-55); Metamyelocytes 1 %; Platelet Estimate Decreased; Segmented Neutrophils 74 % (50-85); Total Cells Counted 100
[2020-10-03 09:21] LABS: Anisocytosis 2+; Macrocytosis Slight
[2020-10-03] MEDS ORDERED: CALCIUM GLUCONATE 2,000 MG in SODIUM CHLORIDE 0.9% 100 ML IV ONE (12:00)
[2020-10-03] MEDS: LINEZOLID INJ 600 MG in PREMIX 1 EACH IV SCH ×2 (12:15→21:59)
[2020-10-03] MEDS ORDERED: SODIUM BICARB INJ 50 MEQ in SODIUM CHLORIDE 0.45% 1,000 ML IV SCH (13:00)
[2020-10-03] MEDS: ASCORBIC ACID 500 MG TABLET PO SCH (21:52)
[2020-10-04 06:14] LABS: Basophils % 0.2 % (0.0-0.8); Eosinophils # 0.1 10*3/uL (0.0-0.87); Hematocrit 27.6 VOL% (42.0-52.0); Hemoglobin 9.3 GM/DL (14.0-18.0); Immature Granulocytes % 1.5 %; Immature Granulocytes Absolute 0.06 #; Lymphocytes # 0.2 10*3/uL (1.4-4.0); Lymphocytes % 4.2 % (21.2-54.2); Mean Corpuscular HGB Conc 33.7 GM/DL (32-36); Mean Corpuscular Volume 92.9 FL (87-102); Mean Platelet Volume 11.6 FL (9.6-12.0); Monocytes % 3.9 % (1.7-12.7); Neutrophils % 88.2 % (38.7-73.9); Red Blood Count 2.97 MC/CUMM (3.8-5.5); Red Cell Distribution Width 18.3 % (9.3-17.3); White Blood Count 4.1 T/CUMM (4-12)
[2020-10-04 06:17] LABS: Platelet Count 42 T/CUMM (130-400)
[2020-10-04 06:30] LABS: Albumin 2.3 G/DL (3.4-5.0); Bilirubin,Total 1.9 MG/DL (0.2-1.0); Calcium 7.2 MG/DL (8.5-10.1); Osmolality,Calculated 277.5 MOS/KG (273-304); Total Protein 4.7 G/DL (6.4-8.3)
[2020-10-04 06:43] LABS: Eosinophils 1 % (0-10); Hypochromasia 1+; Lymphocytes 5 % (20-55); Microcytosis 1+; Platelet Estimate Decreased; Segmented Neutrophils 92 % (50-85); Total Cells Counted 100
[2020-10-04] MEDS: PANTOPRAZOLE 40 MG TABLET PO SCH (08:45)
[2020-10-04] MEDS: BISACODYL 5 MG TABLET PO SCH (08:45)
[2020-10-04] MEDS: allopurinoL 300 MG TABLET PO SCH (08:45)
[2020-10-04] MEDS: POTASSIUM CHLORIDE 20 MEQ TABLET PO SCH (08:45)
[2020-10-04] MEDS: CALCIUM ACETATE 667 MG CAPSULE PO SCH (08:45)
[2020-10-04] MEDS: ASCORBIC ACID 500 MG TABLET PO SCH (08:45)
[2020-10-04 12:09] VITALS: BP 94/54
== END 2020-10-04 13:10 | disposition home health service (06) | DRG 683 ==
LOC: EDBD → EDUNIT# → N.ED 12:10 → SUATTDRO 15:17 → N.EDINP 15:17 → N.TELEN 17:13 → N.ICU 20:07 → N.4E 10-03 09:40
PROVIDERS: ADMIT Internal Medicine; ATTEND Internal Medicine